=== PATIENT | female | born 2000 | race Caucasian/White ===

== ENCOUNTER 2021-08-15 09:30 | Emergency (ER) | payer OTHER ==
[~2021-08-15] VITALS: Wt 62.6 kg
== END 2021-08-15 11:14 | disposition home or self-care (01) ==
LOC: ED 09:30
DX: S61.451A Open bite of right hand, initial encounter (principal); Z23 Encounter for immunization; W54.0XXA Bitten by dog, initial encounter; Y93.89 Activity, other specified; Y92.89 Other specified places as the place of occurrence of the external cause; Y99.8 Other external cause status

== ENCOUNTER 2021-08-18 12:19 | Emergency (ER) | payer OTHER ==
[~2021-08-18] VITALS: Ht 157.4 cm; Wt 63.5 kg
== END 2021-08-18 12:56 | disposition home or self-care (01) ==
LOC: ED 12:19
DX: Z23 Encounter for immunization (principal); Z88.2 Allergy status to sulfonamides; Z88.1 Allergy status to other antibiotic agents

== ENCOUNTER 2021-08-22 17:45 | Emergency (ER) | payer OTHER | END 2021-08-22 19:43 | disposition home or self-care (01) | LOC: ED 17:45 | DX: Z23 Encounter for immunization (principal); Z88.2 Allergy status to sulfonamides; Z88.1 Allergy status to other antibiotic agents ==

== ENCOUNTER 2021-08-29 16:40 | Emergency (ER) | payer OTHER ==
[~2021-08-29] VITALS: Ht 157.4 cm; Wt 52.2 kg
== END 2021-08-29 18:30 | disposition home or self-care (01) ==
LOC: ED 16:40
DX: Z23 Encounter for immunization (principal)